=== PATIENT | female | born 1990 | race Caucasian/White ===

== ENCOUNTER 2024-11-01 14:58 | Emergency (ER) | payer OTHER, SELFPAY ==
[2024-11-01] VITALS (8 sets, daily range): BP systolic 140–148; BP diastolic 92; PULSE 91–106; RESP 20–22; TEMP 36.2; O2SAT 93–97
--- NOTE | ~2024-11-01 | XR_ITS ---
EXAMINATION: XR chest 1V portable DATE: 11/01/2024 15:19 INDICATION: Shortness of breath with wheezing TECHNIQUE: A single AP portable upright frontal image of the chest was obtained. COMPARISON: None FINDINGS: Cardiac mediastinal silhouette is not enlarged. No pneumothorax. No pleural effusion. No free air in the diaphragm. Small opacities in the mid and lower lungs, greater on the right. IMPRESSION: 1. Small opacities in the mid and lower lungs, greater on the right. Differential includes atelectasis or infiltrates. Reviewed, dictated and finalized at location Q. IMPRESSION: 1. Small opacities in the mid and lower lungs, greater on the right. Differenti al includes atelectasis or infiltrates.
--- NOTE | 2024-11-01 15:10 | PC.NURSE ---
Radiology and laboratory at pt bedside.
--- NOTE | 2024-11-01 15:11 | PC.NURSE ---
covid swab sent to lab
[2024-11-01] MEDS: ONDANSETRON HCL ODT 4 MG TABLET PO (15:12)
[2024-11-01] MEDS: IPRATROPIUM 0.5 MG/ALBUTEROL SULFATE 2.5 MG AMPUL.NEB 3 ML INHALATION (15:13)
[2024-11-01 15:20] LABS: Hematocrit 36.4 % (35.0-49.0); Hemoglobin 12.5 g/dL (12.0-15.0); Immature Granulocyte Percent A 0.4 % (0.0-0.0); Lymphocytes Absolute Auto 1.91 K/mm3 (1.10-4.50); Mean Corpuscular HGB Conc 34.3 g/dL (32-36); Mean Corpuscular Hemoglobin 29.3 pg (27.0-31.0); Mean Corpuscular Volume 85.2 fL (78.0-102.0); Nucleated Red Blood Cells Absolute Auto 0.00 K/mm3 (0.00-0.00); Nucleated Red Blood Cells Perc 0.0 % (0-0.0); Platelet Count Result 287 K/mm3 (150-420); Red Blood Count 4.27 M/mm3 (4.20-5.40); White Blood Count 16.3 K/mm3 (4.8-10.8)
[2024-11-01 15:33] LABS: Alanine Aminotransferase 25 U/L (6-35); Albumin Level 4.2 g/dL (3.5-5.1); Alkaline Phosphatase 89 U/L (38-126); Anion Gap 10 mmol/L (4-12); Aspartate Amino Transferase 30 U/L (14-36); Bilirubin,Total 0.6 mg/dL (0.2-1.3); Blood Urea Nitrogen 3 mg/dL (7-17); Calcium 9.1 mg/dL (8.4-10.2); Carbon Dioxide 22 mmol/L (22-30); Chloride 108 mmol/L (98-107); Estimated CRCL calculation 171 ml/min; Estimated Glomerular Filt Rate > 60; Glucose 153 mg/dL (65-110); Osmolality Calculated 289 mOsm/kg (285-295); Sodium 140 mmol/L (137-145); Total Protein 7.5 g/dL (6.3-8.2)
--- OUTSIDE RECORDS SUMMARY | 2024-11-01 15:36 | XMS_ITS | Patient Health Record ---
Author Organization [facility] Address [address] [place] [address] Support Name Relationship Address Phone genaro salguero Emergency Contact [address] [place] [address] Judi Salguero Guarantor Unknown Unavailable Allergies No Known Allergies Reason For Referral No Information Plan Of Treatment Pending Test Test Name Order Date SARS-CoV-2 antigen 11/14/2020
[2024-11-01 15:37] LABS: Potassium 2.8 mmol/L (3.4-5.0)
--- NOTE | 2024-11-01 15:37 | ECG_ITS ---
Test Date: 2024-11-01 15:43:25 Measurements Intervals Mobile Rate: 99 P: 71 NV: 146 QRS: 78 QRSD: 91 T: 64 QT: 353 QTc: 455 Interpretive Statements SINUS RHYTHM MINIMAL Q WAVES- ANTEROLAT/INF LEADS BASELINE ARTIFACT- I, II, III, V1-V3 BORDERLINE ECG No previous ECG available for comparison Electronically Signed On 11-01-2024 16:33:05 CDT by Alexy Ahumada D.O.
[2024-11-01] MEDS: methylPREDNISolone ACETATE 40 MG/ML VIAL 80 MG IM (15:38)
--- NOTE | 2024-11-01 15:47 | PC.NURSE ---
Pt refusing RN to place IV access or blood cultures at this time. MD Mary Anne made aware.
[2024-11-01 15:48] LABS: Influenza A QL RT-PCR Negative (Negative); Influenza B QL RT-PCR Negative (Negative); RSV RNA, RT-PCR Negative (Negative); SARS-CoV-2 RNA PCR Negative (Negative)
--- NOTE | 2024-11-01 16:00 | ED.SOB ---
HPI - SOB/Dyspnea General Chief Complaint: Shortness of Breath/Dyspnea Stated Complaint: Shortness of breath, lump under right breast Time Seen by Provider: 11/01/24 15:06 Source: patient Mode of arrival: ambulatory Limitations: no limitations History of Present Illness HPI Narrative: this is a 33-year-old female history of smoking and hypothyroidism presents with 4 day history of cough and congestion with no fever chills O2 sats 97% on room air there is no chest pain no abdominal pain feels nauseated with some phlegm production with no dysuria no flank pain. MD elicited complaint: shortness of breath and cough Onset (ago): day(s) Context: recent illness Timing: constant Severity: moderate Related Data Allergies Allergy/AdvReac Type Severity Reaction Status Date / Time Penicillins Allergy Itching Verified 11/01/24 15:03 Review of Systems Review of Systems: All systems reviewed & are unremarkable except as noted in HPI and below PMFSH Past Medical History Medical History Hypothyroidism (acquired) Exam Const: General: no acute distress Nutritional Appearance: obese Orientation/consciousness: patient oriented x3 Limitations: no limitations HENMT: Head: normal to inspection Eyes: Conjunctivae: conjunctivae normal Pupils: Equal, round and reactive pupils present Chest: Chest palpation & inspection: normal inspection of the chest Resp: Effort & Inspection: normal respiratory effort Auscultation: wheezes Cardio: Rate: regular rate Rhythm: regular rhythm GI: GI Palp: Yes Soft to palpation Auscultation: normal bowel sounds Urinary Catheter: Urinary Catheter: patent and draining Back/Spine/Pelvis: Back: no CVA tenderness Neuro: General: patient oriented x3 and moves all extremities Extrem: General: normal to inspection Psych: Mental Status: mental status grossly normal Affect: Anxious affect present Course Course Emergency Course: patient with a chest x-ray that shows right lower lobe opacity consistent with infiltrate versus atelectasis white count [id number] will give a dose of p.o. Levaquin, patient had a potassium of 2.8 refuses K rider and IV fluids and any IVs at this time will prep give a dose of p.o. potassium and p.o. Levaquin. Blood cultures drawn lactic acid normal COVID influenza and RSV are within normal limits. Vital Signs Vital signs: Vital Signs Temperature 36.2 C L 11/01/24 14:59 Pulse Rate 106 H 11/01/24 14:59 Respiratory Rate 22 H 11/01/24 14:59 Blood Pressure 148/92 H 11/01/24 14:59 Pulse Oximetry 95 11/01/24 14:59 Oxygen Delivery Room Air 11/01/24 14:59 Temperature 36.2 C L 11/01/24 14:59 Pulse Rate 106 H 11/01/24 14:59 Respiratory Rate 22 H 11/01/24 14:59 Blood Pressure 148/92 H 11/01/24 14:59 Pulse Oximetry 97 11/01/24 15:03 Oxygen Delivery Room Air 11/01/24 15:03 MDM - SOB/Dyspnea Lab Data 11/01/24 15:16 11/01/24 15:16 Labs: Lab Results 11/01/24 11/01/24 Range/Units 15:09 15:16 WBC 16.3 H (4.8-10.8) K/mm3 RBC 4.27 (4.20-5.40) M/mm3 Hgb 12.5 (12.0-15.0) g/dL Hct 36.4 (35.0-49.0) % MCV 85.2 (78.0-102.0) fL MCH 29.3 (27.0-31.0) pg MCHC 34.3 (32-36) g/dL RDW 12.4 (11.6-14.4) % Plt Count 287 (150-420) K/mm3 MPV 10.3 (9.2-11.8) fl Immature Gran % (Auto) 0.4 H (0.0-0.0) % Neut % (Auto) 74.7 H (50.0-70.0) % Lymph % (Auto) 11.7 L (18.0-42.0) % [place] % (Auto) 6.0 (2.0-11.0) % Eos % (Auto) 6.8 H (1.0-6.0) % Baso % (Auto) 0.4 (0.0-1.0) % Lymph # (Auto) 1.91 (1.10-4.50) K/mm3 [place] # (Auto) 0.98 H (0.10-0.90) K/mm3 Eos # (Auto) 1.10 H (0.02-0.50) K/mm3 Baso # (Auto) 0.07 (0.00-0.10) K/mm3 Abs Immat Gran (auto) 0.07 H (0.00-0.00) K/mm3 Absolute Neuts (auto) 12.13 H (1.70-7.20) K/mm3 Absolute Nucleated RBC 0.00 (0.00-0.00) K/mm3 Nucleated RBC % 0.0 (0-0.0) % Sodium 140 (137-145) mmol/L Potassium 2.8 L* (3.4-5.0) mmol/L Chloride 108 H (98-107) mmol/L Carbon Dioxide 22 (22-30) mmol/L Anion Gap 10 (4-12) mmol/L BUN 3 L (7-17) mg/dL Creatinine 0.53 L (0.7-1.0) mg/dL Estim Creat Clear Calc 171 ml/min Estimated GFR > 60 (59 - ) Glucose 153 H (65-110) mg/dL Calculated Osmolality 289 (285-295) mOsm/kg Lactic Acid 1.3 (0.4-2.0) mmol/L Calcium 9.1 (8.4-10.2) mg/dL Total Bilirubin 0.6 (0.2-1.3) mg/dL AST 30 (14-36) U/L ALT 25 (6-35) U/L Alkaline Phosphatase 89 (38-126) U/L Total Protein 7.5 (6.3-8.2) g/dL Albumin 4.2 (3.5-5.1) g/dL Influenza A (RT-PCR) Negative (Negative) Influenza B (RT-PCR) Negative (Negative) RSV (RT-PCR) Negative (Negative) SARS-CoV-2 RNA (RT-PCR) Negative (Negative) Critical Care Time Critical Care Time Critical Care Time: No Discharge Plan Discharge Clinical Impression: Acute hypokalemia Pneumonia Qualifiers: Pneumonia type: due to unspecified organism Laterality: right Lung location: lower lobe of lung Qualified Code(s): J18.9 - Pneumonia, unspecified organism Patient Disposition: Home Condition: Stable Instructions: Antibiotic Form, Hypokalemia (ED), Bacterial Pneumonia (ED) Additional Instructions: advised patient follow-up with primary care physician when the next 2 to 3 days for further evaluation and treatment. Patient Language: Occitan Prescriptions: New prednisone 20 mg tablet 20 mg PO DAILY 5 Days Qty: 5 0RF levofloxacin 500 mg tablet 500 mg PO DAILY Qty: 7 0RF potassium chloride [K-Tab] 20 mEq tablet extended release 20 meq PO BID Qty: 10 0RF ProAir RespiClick 90 mcg/actuation aerosol powdr breath activated 2 inh inhalation QID PRN (Reason: shortness of breath or wheezing) Qty: 1 0RF Follow-up/Referrals: UNKNOWN,DOCTOR [Non-Staff] Time of Disposition: 16:07
[2024-11-01] MEDS: POTASSIUM BICARBONATE 25 MEQ TABEF 50 MEQ PO (16:05)
--- NOTE | 2024-11-06 12:51 | PC.NURSE ---
BLOOD CULTURE PRELIMINARY RESULTS: NO GROWTH. WAITING ON FINAL RESULTS.
--- NOTE | 2024-11-08 14:24 | PC.NURSE ---
preliminary blood culture reviewed. no growth after 48 hours.
--- NOTE | 2024-11-09 12:21 | PC.NURSE ---
FINAL BLOOD CULTURE NO GROWTH IN 5 DAYS
== END 2024-11-01 16:20 | disposition home or self-care (01) ==
PROVIDERS: Emergency Provider Emergency Medicine; PCP Nurse Practitioner
DX: J18.9 Pneumonia, unspecified organism (principal); E87.6 Hypokalemia; E03.9 Hypothyroidism, unspecified; Z20.822 Contact with and (suspected) exposure to COVID-19
CPT/HCPCS: 36415; 71045; 80053; 83605; 85025; 87040; 87637; 93005; 96360; 96372; 99283; A9270; J1010